=== PATIENT | female | born 1950 | race Caucasian/White ===

== ENCOUNTER 2020-11-24 07:03 | Day surgery (SDC) | payer BC, OTHER ==
[2020-11-18 10:55] VITALS: BMI 21.2
[2020-11-24] MEDS ORDERED: LIDOCAINE HCL/PF 2% SDV 5ML VIAL ONE (07:57)
[2020-11-24] MEDS ORDERED: KETOROLAC TROMETHAMINE 30 MG/1 ML VIAL ONE (07:57)
[2020-11-24] MEDS ORDERED: DEXAMETHASONE SOD PHOSPHATE 4 MG/1 ML VIAL ONE (07:57)
[2020-11-24] MEDS ORDERED: ONDANSETRON 4 MG/2 ML VIAL ONE (07:57)
[2020-11-24] MEDS ORDERED: MIDAZOLAM HCL 2 MG/2 ML SINGLE DOSE VIAL ONE (07:58)
[2020-11-24] MEDS ORDERED: PROPOFOL 20 ML ONE (07:58)
[2020-11-24] MEDS ORDERED: LIDOCAINE HCL 2% (50ML VIAL) INF ONE (08:55)
[2020-11-24 09:41] VITALS: PULSE 52; TEMP 97.9
[2020-11-24 11:10] VITALS: BP 124/72
== END 2020-11-24 10:00 | disposition home or self-care (01) ==
LOC: FASU 07:03
PROVIDERS: ATTEND Orthopaedic Surgery Hand Surgery
PROC: 0JBK0ZZ Excision of Left Hand Subcutaneous Tissue and Fascia, Open Approach (ICD-10-PCS; principal; 2020-11-24 08:55)
DX: M67.442 Ganglion, left hand (principal); R22.32 Localized swelling, mass and lump, left upper limb

== ENCOUNTER 2021-02-01 16:46 | Emergency (ER) | payer OTHER ==
[2021-02-02 10:10] LABS: SARS-CoV-2 NAA Not Detected (Not Detected)
== END 2021-02-01 17:33 | disposition home or self-care (01) ==
LOC: JVIRT 16:46
DX: Z20.822 Contact with and (suspected) exposure to COVID-19 (principal)
CPT/HCPCS: C9803; Q3014-GT; U0003; U0005